=== PATIENT | male | born 1985 | race African-American/Black ===

== ENCOUNTER 2025-01-27 00:10 | Emergency (ER) | payer SELFPAY ==
[~2025-01-27] VITALS: Ht 195.6 cm; Wt 95.3 kg
[2025-01-27] MEDS ORDERED: KETOROLAC TROMETHAMINE INJ 30 MG/ML VIAL ONE (00:52)
[2025-01-27] MEDS: KETOROLAC TROMETHAMINE 15 MG/ML VIAL IV ONE (01:03)
[2025-01-27 01:19] LABS: ALANINE AMINOTRANSFERASE 22 U/L (12-78); ALBUMIN 3.5 g/dL (3.4-5.0); ALKALINE PHOSPHATASE 89 U/L (46-116); ASPARTATE AMINOTRANSFERASE 29 U/L (15-37); BILIRUBIN,DIRECT 0.1 mg/dL (0.0-0.2); BILIRUBIN,TOTAL 0.5 mg/dL (0.2-1.0); CALCIUM, SERUM 8.9 mg/dL (8.5-10.1); CARBON DIOXIDE 27 mmol/L (21-32); CHLORIDE 106 mmol/L (98-107); CREATININE 1.2 mg/dL (0.6-1.3); GLUCOSE 100 mg/dL (74-106); POTASSIUM 3.7 mmol/L (3.5-5.1); SODIUM SERUM 140 mmol/L (136-145); TOTAL PROTEIN, SERUM 7.3 g/dL (6.4-8.2); UREA NITROGEN, BLOOD 22 mg/dL (7-18)
[2025-01-27 01:30] LABS: BASOPHILS % (AUTO) 0.3 % (0.0-2.0); EOSINOPHILS # (AUTO) 0.2 K/uL (0.0-0.7); EOSINOPHILS % (AUTO) 3.2 % (0.0-6.0); HEMATOCRIT 39 % (39-51); HEMOGLOBIN 13.4 g/dL (13.5-17.5); LYMPHOCYTES # (AUTO) 1.6 K/uL (0.8-4.8); MEAN CORPUSCULAR HEMOGLOBIN 28 PG (26.0-33.0); MEAN CORPUSCULAR HGB CONC 35 g/dl (31.0-36.0); MEAN CORPUSCULAR VOLUME 81 fL (80-96); MONOCYTES # (AUTO) 0.4 K/uL (0.1-1.30); MONOCYTES % (AUTO) 7.8 % (2.0-12.0); NEUTROPHILS # (AUTO) 2.6 K/uL (1.8-8.9); NEUTROPHILS % (AUTO) 54.7 % (43.0-81.0); PLATELET COUNT (AUTO) 173 K/uL (150-450); RED BLOOD CELL COUNT(AUTO) 4.77 MIL/uL (4.5-6.0); RED CELL DISTRIBUTION WIDTH 14.2 % (11.5-15.0); WHITE BLOOD COUNT (AUTO) 4.8 K/uL (4.3-11.0)
[2025-01-27 01:34] LABS: PARTIAL THROMBOPLASTIN TIME 26.4 SEC (24.3-34.3); PROTHROMBIN TIME 10.6 SECS (9.2-11.1)
[2025-01-27 03:48] VITALS: BP 139/70; TEMP 98; O2SAT 99
== END 2025-01-27 03:48 | disposition home or self-care (01) ==
LOC: ER 00:22
DX: R07.89 Other chest pain (principal); R06.02 Shortness of breath; G40.909 Epilepsy, unspecified, not intractable, without status epilepticus; R94.31 Abnormal electrocardiogram [ECG] [EKG]
CPT/HCPCS: 99285; 96374; 71045; 93005; 85025; 80048; 80076; 36415; 84484 ×2; 85730; J1885

== ENCOUNTER 2025-05-24 04:15 | Emergency (ER) | payer MEDICAID ==
[~2025-05-24] VITALS: Ht 193 cm; Wt 113.4 kg
[2025-05-24 04:41] VITALS: TEMP 98.4
[2025-05-24 04:45] VITALS: BP 170/100; O2SAT 96
[2025-05-24] MEDS ORDERED: ASPIRIN 325 MG TABLET ONE (05:11)
[2025-05-24] MEDS ORDERED: LEVETIRACETAM (250 MG) 250 MG TABLET ONE (05:11)
[2025-05-24 05:12] LABS: PLATELET COUNT (AUTO) 179 K/uL (150-450); RED BLOOD CELL COUNT(AUTO) 4.95 MIL/uL (4.5-6.0); RED CELL DISTRIBUTION WIDTH 15.0 % (11.5-15.0); WHITE BLOOD COUNT (AUTO) 6.4 K/uL (4.3-11.0)
[2025-05-24] MEDS: ASPIRIN 325 MG TABLET PO ONE (05:22)
[2025-05-24] MEDS: LEVETIRACETAM (250 MG) 250 MG TABLET PO ONE (05:22)
[2025-05-24 05:25] LABS: CALCIUM, SERUM 9.5 mg/dL (8.5-10.1); CREATININE 1.3 mg/dL (0.6-1.3); SODIUM SERUM 144 mmol/L (136-145); UREA NITROGEN, BLOOD 19 mg/dL (7-18)
[2025-05-24 05:27] LABS: INR 0.93 (0.91-1.10)
[2025-05-24 05:28] LABS: AMPHETAMINE, URINE NEGATIVE (NEGATIVE); BARBITURATE, URINE NEGATIVE (NEGATIVE); BENZODIAZEPINE, URINE NEGATIVE (NEGATIVE); COCCAINE, URINE NEGATIVE (NEGATIVE); OPIATE, URINE NEGATIVE (NEGATIVE)
[2025-05-24 05:34] LABS: CANNABINOID, URINE POSITIVE (NEGATIVE)
[2025-05-24 05:37] LABS: ALCOHOL, BLOOD < 3 mg/dL (0-10); ASPARTATE AMINOTRANSFERASE 16 U/L (15-37); TOTAL PROTEIN, SERUM 8.0 g/dL (6.4-8.2)
[2025-05-24 05:40] LABS: NT-PRO BNP 9 pg/mL (0-125)
[2025-05-24] MEDS ORDERED: LEVE1000 PO (05:45)
== END 2025-05-24 06:03 | disposition home or self-care (01) ==
LOC: ER 04:17
DX: R07.9 Chest pain, unspecified (principal); G40.909 Epilepsy, unspecified, not intractable, without status epilepticus; I11.0 Hypertensive heart disease with heart failure; I50.9 Heart failure, unspecified; Z86.59 Personal history of other mental and behavioral disorders; Z60.2 Problems related to living alone
CPT/HCPCS: 36415; 71045-TC; 80048-TC; 80076-TC; 83880; 84443-TC; 84484-TC; 85025-TC; 85730-TC; G0480

== ENCOUNTER 2025-07-10 07:45 | Emergency (ER) | payer MEDICAID ==
[~2025-07-10] VITALS: Ht 185.4 cm; Wt 94.8 kg
[~2025-07-10 07:45] MED LIST: LEVE1000 PO
[2025-07-10] MEDS ORDERED: ACETAMINOPHEN 325 MG TABLET ONE (08:34)
[2025-07-10] MEDS: ACETAMINOPHEN 325 MG TABLET PO ONE (08:37)
[2025-07-10 08:56] LABS: PLATELET COUNT (AUTO) 175 K/uL (150-450); RED BLOOD CELL COUNT(AUTO) 4.87 MIL/uL (4.5-6.0); RED CELL DISTRIBUTION WIDTH 14.8 % (11.5-15.0); WHITE BLOOD COUNT (AUTO) 6.1 K/uL (4.3-11.0)
[2025-07-10 09:04] LABS: CALCIUM, SERUM 9.3 mg/dL (8.5-10.1); CREATININE 1.5 mg/dL (0.6-1.3); SODIUM SERUM 142 mmol/L (136-145); UREA NITROGEN, BLOOD 17 mg/dL (7-18)
[2025-07-10 09:18] LABS: ASPARTATE AMINOTRANSFERASE 31 U/L (15-37); TOTAL PROTEIN, SERUM 7.9 g/dL (6.4-8.2)
[2025-07-10 09:20] LABS: NT-PRO BNP 7 pg/mL (0-125)
[2025-07-10] MEDS: IV NS 0.9% 1,000 ML BAG IV ONE (09:33)
[2025-07-10] MEDS ORDERED: IV NS 0.9% 250 ML IV ONE (13:11)
[2025-07-10] MEDS ORDERED: IOHEXOL-350 100 ML VIAL IV ONE (13:11)
[2025-07-10 14:12] LABS: INR 1.03 (0.91-1.10)
[2025-07-10] MEDS ORDERED: LEVE500T20 PO (14:17)
[2025-07-10] MEDS ORDERED: APIX5TAB4 PO (14:30)
[2025-07-10 14:56] VITALS: BP 129/77; TEMP 97.8; O2SAT 97
== END 2025-07-10 14:57 | disposition home or self-care (01) ==
LOC: ER 07:48
DX: M79.10 Myalgia, unspecified site (principal); F17.200 Nicotine dependence, unspecified, uncomplicated; I11.0 Hypertensive heart disease with heart failure; I50.9 Heart failure, unspecified; I25.2 Old myocardial infarction; G40.909 Epilepsy, unspecified, not intractable, without status epilepticus; Z20.822 Contact with and (suspected) exposure to COVID-19
CPT/HCPCS: 99285; 93970; 96360; 71275; 87426; 93005; 87804 ×2; 85025; 80048; 82550; 80076; 85378; 36415; 84484 ×2; 85730; 83880; 82553; J7050; Q9967

== ENCOUNTER 2025-07-22 04:41 | Emergency (ER) | payer MEDICAID ==
[~2025-07-22] VITALS: Ht 193 cm; Wt 108.9 kg
[~2025-07-22 04:41] MED LIST changes: +APIX5TAB4 PO; -LEVE1000 PO; +LEVE500T20 PO
[2025-07-22 05:24] LABS: PLATELET COUNT (AUTO) 167 K/uL (150-450); RED BLOOD CELL COUNT(AUTO) 4.70 MIL/uL (4.5-6.0); RED CELL DISTRIBUTION WIDTH 14.3 % (11.5-15.0); WHITE BLOOD COUNT (AUTO) 6.8 K/uL (4.3-11.0)
[2025-07-22 05:36] LABS: CALCIUM, SERUM 8.9 mg/dL (8.5-10.1); CREATININE 1.3 mg/dL (0.6-1.3); INR 1.0 (0.91-1.10); SODIUM SERUM 142 mmol/L (136-145); UREA NITROGEN, BLOOD 15 mg/dL (7-18)
[2025-07-22] MEDS ORDERED: ONDA4TAB5 PO (06:30)
[2025-07-22 06:43] VITALS: BP 129/90; TEMP 98; O2SAT 97
== END 2025-07-22 06:44 | disposition home or self-care (01) ==
LOC: ER 04:42
DX: R11.2 Nausea with vomiting, unspecified (principal); R07.89 Other chest pain; F17.200 Nicotine dependence, unspecified, uncomplicated; G40.909 Epilepsy, unspecified, not intractable, without status epilepticus; I11.0 Hypertensive heart disease with heart failure; I25.2 Old myocardial infarction; I50.9 Heart failure, unspecified; Z86.711 Personal history of pulmonary embolism; Z60.2 Problems related to living alone
CPT/HCPCS: 36415; 71045-TC; 80048-TC; 84484-TC; 85025-TC; 85730-TC

== ENCOUNTER 2025-08-16 00:04 | Emergency (ER) | payer MEDICAID ==
[~2025-08-16] VITALS: Ht 193 cm; Wt 129.3 kg
[~2025-08-16 00:04] MED LIST changes: +ONDA4TAB5 PO
[2025-08-16 00:31] VITALS: BP 154/106; TEMP 98; O2SAT 95
[2025-08-16] MEDS ORDERED: LEVETIRACETAM (250 MG) 250 MG TABLET ONE (00:49)
[2025-08-16] MEDS ORDERED: NAPROXEN 250 MG TABLET ONE (00:49)
[2025-08-16] MEDS: LEVETIRACETAM (250 MG) 250 MG TABLET PO ONE (01:00)
[2025-08-16] MEDS: NAPROXEN 250 MG TABLET PO ONE (01:00)
[2025-08-16] MEDS ORDERED: ACET-3102 PO (01:06)
[2025-08-16] MEDS ORDERED: IBUP-2314 PO (01:06)
== END 2025-08-16 02:06 | disposition home or self-care (01) ==
LOC: ER 00:17
DX: M25.512 Pain in left shoulder (principal); F17.200 Nicotine dependence, unspecified, uncomplicated; G40.909 Epilepsy, unspecified, not intractable, without status epilepticus; I11.0 Hypertensive heart disease with heart failure
CPT/HCPCS: 73030-TC